=== PATIENT | male | born 1950 | race Caucasian/White ===

== ENCOUNTER → 2017-05-11 | Outpatient (CLI) | payer OTHER ==
[~2017-05-11] MED LIST: ASPI-1471 PO; CHOL500045 PO; CINN500C12 PO; CYAN1000 IJ; CYAN1000 IM; FLUT16SP19 NS; GLUC1TAB13 PO; MULT-999 PO; MULT1TAB67 PO; RUTI1TAB3 PO; ZYFLAMEND
[2017-05-11 09:33] LABS: INR 2.22
== END ==
LOC: LAB 09:11
PROVIDERS: ATTEND Physician Assistant
DX: I48.2 Chronic atrial fibrillation (principal); Z79.01 Long term (current) use of anticoagulants
CPT/HCPCS: 36415; 85610

== ENCOUNTER → 2017-05-17 | Outpatient (CLI) | payer OTHER ==
[~2017-05-17] MED LIST changes: +AMIO200T47 PO; +ASPI81TA94 PO; +ATOR40TA24 PO; +METO50TA19 PO; +WARF-18 PO
[2017-05-17 10:15] LABS: INR 1.9
== END ==
LOC: LAB 09:10
PROVIDERS: ATTEND Physician Assistant
DX: Z51.81 Encounter for therapeutic drug level monitoring (principal); Z79.01 Long term (current) use of anticoagulants; I48.2 Chronic atrial fibrillation
CPT/HCPCS: 36415; 85610

== ENCOUNTER → 2017-05-28 | Outpatient (CLI) | payer OTHER | LOC: LAB 09:08 | PROVIDERS: ATTEND Internal Medicine Cardiovascular Disease | DX: I50.22 Chronic systolic (congestive) heart failure (principal) | CPT/HCPCS: 36415; 82310; 82374; 82435; 82565; 82947; 84132; 84295; 84520 ==

== ENCOUNTER → 2017-05-30 | Outpatient (CLI) | payer OTHER ==
[2017-05-30 11:27] LABS: INR 1.69
== END ==
LOC: LAB 10:57
PROVIDERS: ATTEND Physician Assistant
DX: I48.2 Chronic atrial fibrillation (principal)
CPT/HCPCS: 36415; 85610

== ENCOUNTER → 2017-06-06 | Outpatient (CLI) | payer OTHER | LOC: LAB 09:27 | PROVIDERS: ATTEND Internal Medicine Cardiovascular Disease | DX: I50.22 Chronic systolic (congestive) heart failure (principal) | CPT/HCPCS: 36415; 82310; 82374; 82435; 82565; 82947; 84132; 84295; 84520 ==

== ENCOUNTER → 2017-06-08 | Outpatient (CLI) | payer OTHER | LOC: LAB 09:16 | PROVIDERS: ATTEND Internal Medicine Cardiovascular Disease | DX: I50.22 Chronic systolic (congestive) heart failure (principal) | CPT/HCPCS: 36415; 82310; 82374; 82435; 82565; 82947; 84132; 84295; 84520 ==

== ENCOUNTER → 2017-08-10 | Outpatient (CLI) | payer MEDICARE ==
[~2017-08-10] MED LIST changes: -WARF-18 PO; +WARF5TAB23 PO
[2017-08-10 09:50] LABS: PLATELET COUNT, AUTOMATED 217 K/uL (150-450)
[2017-08-10 10:02] LABS: LDL CHOLESTEROL 41 mg/dl
== END ==
LOC: LAB 09:24
PROVIDERS: ATTEND Emergency Medicine
DX: I25.10 Atherosclerotic heart disease of native coronary artery without angina pectoris (principal)
CPT/HCPCS: 36415; 82040; 82247; 82310; 82374; 82435; 82465; 82565; 82947; 83718; 84075; 84132; 84155; 84295; 84450; 84460; 84478; 84520; 85007; 85027

== ENCOUNTER → 2017-08-13 | Outpatient (CLI) | payer MEDICARE | LOC: LAB 13:55 | PROVIDERS: ATTEND Emergency Medicine | DX: E53.8 Deficiency of other specified B group vitamins (principal) | CPT/HCPCS: 36415; 82607 ==

== ENCOUNTER → 2017-11-21 | Outpatient (CLI) | payer MEDICARE ==
[~2017-11-21] MED LIST changes: -AMIO200T47 PO; +AMIO200T49 PO; +ATOR-1 PO; +ATR80PT PO; +CHOL10005 PO; +CODE118S5 PO; +LISI5TAB25 PO; +SPIR25TA80 PO
== END ==
LOC: LAB 10:36
PROVIDERS: ATTEND Emergency Medicine
DX: Z12.5 Encounter for screening for malignant neoplasm of prostate (principal); R25.2 Cramp and spasm
CPT/HCPCS: 36415; 83735; G0103; 82274; 82310; 82374; 82435; 82565; 82947; 84132; 84153; 84295; 84520

== ENCOUNTER → 2018-02-19 | Outpatient (CLI) | payer MEDICARE ==
[2018-02-19 11:34] LABS: INR 1.47
== END ==
LOC: LAB 11:14
PROVIDERS: ATTEND Physician Assistant
DX: I48.0 Paroxysmal atrial fibrillation (principal)
CPT/HCPCS: 36415; 85610

== ENCOUNTER → 2018-04-15 | Outpatient (CLI) | payer MEDICARE ==
[2018-04-15 10:53] LABS: INR 1.71
== END ==
LOC: LAB 10:23
PROVIDERS: ATTEND Physician Assistant
DX: I48.0 Paroxysmal atrial fibrillation (principal)
CPT/HCPCS: 36415; 85610

== ENCOUNTER → 2018-06-24 | Outpatient (CLI) | payer MEDICARE ==
[2018-06-24 08:58] LABS: PLATELET COUNT, AUTOMATED 182 K/uL (150-450)
[2018-06-24 09:12] LABS: LDL CHOLESTEROL 47 mg/dl
== END ==
LOC: LAB 08:35
PROVIDERS: ATTEND Emergency Medicine
DX: I25.10 Atherosclerotic heart disease of native coronary artery without angina pectoris (principal)
CPT/HCPCS: 36415; 82040; 82247; 82310; 82374; 82435; 82465; 82565; 82947; 83718; 84075; 84132; 84155; 84295; 84450; 84460; 84478; 84520; 85025